=== PATIENT | female | born 1980 | race Caucasian/White ===

== ENCOUNTER 2017-11-17 08:00 | Outpatient (CLI) | payer OTHER | END 2017-11-17 08:01 | disposition home or self-care (01) | LOC: LAB.R 08:00 | PROVIDERS: ATTEND Obstetrics & Gynecology | DX: Z11.3 Encounter for screening for infections with a predominantly sexual mode of transmission (principal) | CPT/HCPCS: 87491; 87591 ==

== ENCOUNTER 2018-05-31 15:51 | Outpatient (CLI) | payer OTHER ==
--- NOTE | 2018-05-31 23:01 | XRAY Report ---
Reason: LUMBAR PAIN DDD Procedure Date: 05/31/2018 Accession Number: [id number] / [id number] Procedure: XR - Lumbar Spine 2 View CPT Code: FULL RESULT: EXAM: LUMBOSACRAL SPINE RADIOGRAPHY EXAM DATE: 05/31/2018 04:31 PM. CLINICAL HISTORY: Back pain COMPARISONS: None. TECHNIQUE: 2 views. FINDINGS: Alignment: No evidence of dislocation. There is mild right convex scoliosis. Bones: No fractures or focal bony lesions. Disks/Facets: No evidence of significant degenerative disease. Sacroiliac Joints: Unremarkable. Soft Tissues: No unexpected findings. IMPRESSION: No evidence of fracture or dislocation. No significant disk space narrowing or facet arthrosis. RADIA
--- NOTE | 2018-05-31 23:02 | XRAY Report ---
Reason: THORACIC BACK PAIN,CERVICALGIA,DDD,LUMBAR SPINE Procedure Date: 05/31/2018 Accession Number: [id number] / [id number] Procedure: XR - Thoracic Spine 2 View CPT Code: FULL RESULT: EXAM: THORACIC SPINE RADIOGRAPHY EXAM DATE: 05/31/2018 04:31 PM. CLINICAL HISTORY: Back pain COMPARISON: None. TECHNIQUE: 2 views. FINDINGS: Alignment: No spondylolisthesis. There is very mild S-shaped scoliotic curvature of the upper and mid thoracic spine. Bones: No fractures or bone lesions. Disks: Normal. Disk heights are maintained. Soft Tissues: Normal. The visualized lungs and cardiomediastinal silhouette are normal. IMPRESSION: No evidence of fracture, dislocation, or significant degenerative disease. RADIA
--- NOTE | 2018-05-31 23:03 | XRAY Report ---
Reason: CERVICALIGIA Procedure Date: 05/31/2018 Accession Number: [id number] / [id number] Procedure: XR - Cervical Spine 2 View CPT Code: FULL RESULT: EXAM: CERVICAL SPINE RADIOGRAPHY EXAM DATE: 05/31/2018 04:31 PM. CLINICAL HISTORY: CERVICALGIA. COMPARISONS: None. TECHNIQUE: 3 views. FINDINGS: Alignment: Normal. No spondylolisthesis or scoliosis. Bones: The cervical vertebral bodies and posterior elements are well visualized from the skull base through C7-T1. No fractures or bone lesions. Disks: There is mild disk space narrowing at the C4-C5 and C5-C6 levels. Facets: No evidence of significant facet arthrosis. Soft Tissues: Normal. No prevertebral soft tissue swelling. The visualized lung apices are clear. IMPRESSION: 1. No fracture or dislocation. 2. There is mild disk space narrowing and marginal osteophyte formation of the mid cervical spine. RADIA
== END 2018-05-31 15:52 | disposition home or self-care (01) ==
LOC: DI 15:51
PROVIDERS: ATTEND Physician Assistant Medical
DX: M51.36 Other intervertebral disc degeneration, lumbar region (principal); M54.6 Pain in thoracic spine; M54.2 Cervicalgia; M25.78 Osteophyte, vertebrae
CPT/HCPCS: 72040; 72070; 72100

== ENCOUNTER 2019-03-14 17:51 | Emergency (ER) | payer OTHER ==
--- NOTE | 2019-03-14 18:02 | ED Physician Documentation ---
PD HPI FEMALE - Stated complaint Stated Complaint: FEMALE - Chief complaint Chief Complaint: UTI - History obtained from History obtained from: Patient - History of Present Illness Timing - onset: Today Timing - duration: Days (1) Timing - details: Abrupt onset, Still present Associated symptoms: Back pain (mild), Dysuria, Urinary frequency. No: Fever, Vaginal discharge, Genital sore/lesion, Hematuria Contributing factors: No: Exposed to STD Similar symptoms before: Diagnosis (uti) Recently seen: Clinic (lower back disc injection few days ago without problems.) Review of Systems Constitutional: denies: Fever, Chills, Myalgias GI: denies: Nausea, Vomiting : reports: Dysuria, Frequency. denies: Discharge PD PAST MEDICAL HISTORY - Past Medical History Musculoskeletal: Chronic back pain - Present Medications Home Medications: Ambulatory Orders Medication Instructions Recorded Confirmed Sulfamethox/Trimeth 800/160 1 each PO BID #14 tablet 03/14/19 [Bactrim Ds 800/160] - Allergies Allergies/Adverse Reactions: Allergies Allergy/AdvReac Type Severity Reaction Status Date / Time azithromycin AdvReac Nausea Verified 03/14/19 17:57 PD ED PE NORMAL - Vitals Vital signs reviewed: Yes - General General: Alert and oriented X 3, No acute distress, Well developed/nourished - Abdomen Abdomen: Soft, Non tender - Female Female : Deferred - Back Back: No CVA TTP - Derm Derm: Normal color, Warm and dry Results - Vitals Vitals: Vital Signs - 24 hr 03/14/19 17:55 Temperature 36.2 C L Heart Rate 93 Respiratory 20 Rate Blood Pressure 104/68 O2 Saturation 99 Oxygen O2 Source Room air PD MEDICAL DECISION MAKING - ED course Complexity details: considered differential (Sounds like UTI and we will treated as such.), d/w patient Departure - Departure Disposition: Home, Self Care Clinical Impression: Urinary tract infection Qualifiers: Urinary tract infection type: acute cystitis Hematuria presence: without hemat uria Qualified Code(s): N30.00 - Acute cystitis without hematuria Condition: Stable Record reviewed to determine appropriate education?: Yes Instructions: ED UTI Cystitis Female Follow-Up: Darryl Estrada MD [Primary Care Provider] - Prescriptions: Sulfamethox/Trimeth 800/160 [Bactrim Ds 800/160] 1 each PO BID #14 tablet Comments: Stay well-hydrated. Bactrim antibiotic twice daily for a week. Continue the ibuprofen and Azo as needed for discomfort. Recheck if not improving over the next couple of days.
[2019-03-14] MEDS ORDERED: SULFAMETH/TRIMETH DS 800/160 MG TABLET PO STA (18:16)
[2019-03-14 18:28] VITALS: BP 118/68
[2019-03-14 18:38] LABS: KETONES,URINE (UA) TRACE mg/dL (NEGATIVE); LEUKOCYTE ESTERASE, URINE LARGE (NEGATIVE); NITRITE,URINE POSITIVE (NEGATIVE); OCCULT BLOOD,URINE MODERATE (NEGATIVE); PROTEIN,URINE >=300 mg/dL (NEGATIVE)
[2019-03-14 18:50] LABS: BILIRUBIN,URINE COLOR INTERFERENCE (NEGATIVE); CLARITY,URINE HAZY (CLEAR)
[2019-03-14 18:51] LABS: RBC,URINE 0-5 /HPF (0-5); WBC CLUMPS,URINE PRESENT
[2019-03-14 18:52] LABS: BACTERIA,URINE Moderate /HPF (None Seen); SQUAMOUS EPITHELIAL CELL,UR FEW Squamous (<= Few)
== END 2019-03-14 18:27 | disposition home or self-care (01) ==
LOC: ED 17:51
DX: N30.00 Acute cystitis without hematuria (principal)
CPT/HCPCS: 81001; 87086; 87181; 99283; A9270; 81003; 81025

== ENCOUNTER 2019-08-24 19:16 | Outpatient (CLI) | payer OTHER ==
--- NOTE | 2019-08-25 05:51 | Ultrasound Report ---
Reason: SCOTOMA INVOLVING CENTRAL AREA,LEFT EYE Procedure Date: 08/24/2019 Accession Number: [id number] / [id number] Procedure: US - Carotid Doppler Complete CPT Code: Final Report FULL RESULT: EXAM: BILATERAL CAROTID AND VERTEBRAL ARTERY DUPLEX DOPPLER ULTRASOUND: EXAM DATE: 08/24/2019 08:40 PM CLINICAL HISTORY: Scotoma involving central area, left eye. COMPARISON: None. TECHNIQUE: Grayscale imaging, color Doppler, and duplex spectral Doppler were used to evaluate the carotid and vertebral arteries bilaterally. Static images were obtained. FINDINGS: Minimal amount of irregular carotid artery plaquing bilaterally. Normal antegrade flow is present in bilateral vertebral arteries. VELOCITIES (cm/sec): Right CCA mid: PSV 98 cm/sec CCA dist: PSV 91 cm/sec ICA prox: PSV 117 cm/sec, EDV 44 cm/sec ICA mid: PSV 114 cm/sec, EDV 44 cm/sec ICA dist: PSV 127 cm/sec, EDV 53 cm/sec ECA: PSV 86 cm/sec Vert: PSV 96 cm/sec ICA/CCA: 1.3 Left CCA mid: PSV 120 cm/sec CCA dist: PSV 110 cm/sec ICA prox: PSV 127 cm/sec, EDV 39 cm/sec ICA mid: PSV 144 cm/sec, EDV 63 cm/sec ICA dist: PSV 120 cm/sec, EDV 50 cm/sec ECA: PSV 89 cm/sec Vert: PSV 58 cm/sec ICA/CCA: 1.2 ICA diameter stenosis: Right: <50% by velocity and <70% by NASCET criteria. Left: <50% by velocity and <70% by NASCET criteria. Other: Right submandibular lymph nodes measuring up to 8 mm in short axis. IMPRESSION: 1. Minimal bilateral carotid artery plaquing. 2. No hemodynamically significant stenosis or occlusion of carotid arteries. 3. Normal antegrade flow is present in bilateral vertebral arteries. 4. Several right submandibular lymph nodes measuring up to 8 mm in short axis, nonspecific. General Recommendations: Stenosis =50% ICA - Follow-up ultrasound 6-12 months Stenosis <50% ICA - High Risk Patient with plaque - Follow-up ultrasound 1-2 years Normal Study but High Risk Patient - Follow-up ultrasound 3-5 years Management recommendations and diagnostic criteria are based on current IAC endorsed standards in Carotid Artery Stenosis: Grayscale and Doppler Ultrasound Diagnosis. Validated velocity measurements with angiographic measurements and velocity criteria are extrapolated from diameter data as defined by the Society of Radiologists in Ultrasound Consensus Conference Radiology 2003; 229;340-346. RADIA
== END 2019-08-24 19:17 | disposition home or self-care (01) ==
LOC: DI 19:16
PROVIDERS: ATTEND Optometrist Corneal and Contact Management
DX: H53.412 Scotoma involving central area, left eye (principal)
CPT/HCPCS: 93880

== ENCOUNTER 2019-08-25 09:14 | Outpatient (CLI) | payer OTHER ==
[2019-08-25] MEDS ORDERED: GADOBUTROL 7.5 MMOL/7.5 ML VIAL ONE (10:21)
[2019-08-25] MEDS ORDERED: GADOBUTROL 7.5 MMOL/7.5 ML VIAL IVP ONE (10:40)
--- NOTE | 2019-08-26 01:46 | MRI Report ---
Reason: LT EYE SCOTOMA Procedure Date: 08/25/2019 Accession Number: [id number] / [id number] Procedure: MRI - Orbits W/WO CPT Code: Final Report FULL RESULT: EXAM: MRI BRAIN AND ORBITS WITHOUT AND WITH CONTRAST EXAM DATE: 08/25/2019 11:05 AM. CLINICAL HISTORY: Headache, visual disturbances. COMPARISON: ORBITS W/WO 08/25/2019 10:20 AM. TECHNIQUE: Multiplanar, multisequence T1-weighted and fluid-sensitive MR sequences of the brain were performed before and after administration of intravenous contrast. Sequences optimized for routine and orbital evaluation. Other: Additional high-resolution images through the orbits were obtained. IV Contrast: 7 mL of Gadavist. FINDINGS: Brain Volume: Normal for age. Parenchyma: No acute hemorrhage, mass, or infarct. No white matter lesions identified. No abnormal enhancement. Ventricles/Cisterns: No hydrocephalus. No abnormal extra-axial fluid collection or hemorrhage. Orbits: The orbits are symmetric in size. There is no evidence of lens dislocation, intraocular hemorrhage, or an intraocular mass lesion. On coronal T2 images through the optic nerves, there appears to be overall decreased fluid within the left optic nerve sheath compared to the right which could represent a normal variant for this patient. There is no abnormal enhancement of the optic nerves or optic nerve sheaths. Appropriate and symmetric enhancement of the bilateral extraocular muscles is noted. The superior ophthalmic veins are not enlarged. Sella Turcica: The pituitary gland, cavernous sinuses, suprasellar cistern and optic chiasm are unremarkable. IAC: Symmetric and unremarkable. Vasculature: Normal signal flow void is seen in the major arterial structures at the skull base. The dural sinuses are patent and enhance normally. Sinuses: A tiny mucous retention cyst is noted in the inferior left maxillary sinus. The mastoid sinuses are not opacified. Bones: No focal pathologic appearing marrow signal changes. IMPRESSION: 1. Normal contrast-enhanced brain MRI. 2. Decreased fluid in the left optic nerve sheath compared to the right. However, there is no abnormal signal intensity within the optic chiasm. No abnormal optic nerve or optic nerve sheath enhancement is seen. These findings could represent a normal variant for this patient. 3. The remainder of the orbits are normal in appearance. RADIA
== END 2019-08-25 09:15 | disposition home or self-care (01) ==
LOC: DI 09:14
PROVIDERS: ATTEND Optometrist Corneal and Contact Management
DX: H53.412 Scotoma involving central area, left eye (principal)
CPT/HCPCS: 70543; 70553; A9585

== ENCOUNTER 2020-05-03 00:37 | Emergency (ER) | payer BC, OTHER ==
[2020-05-03 00:50] VITALS: BP 117/79
--- NOTE | 2020-05-03 01:14 | ED Physician Documentation ---
PD HPI LOWER EXT INJURY - Stated complaint Stated Complaint: R FOOT PX - Chief complaint Chief Complaint: Ext Problem - History obtained from History obtained from: Patient, Family - History of Present Illness PD HPI LOW EXT INJURY LOCATION: Right, Foot Type of injury: Twist Where injury occurred: Home Timing - onset: Today Timing - duration: Minutes Timing - details: Abrupt onset, Still present Improved by: Rest, Immobilization Worsened by: Moving, Palpating Associated symptoms: Swelling. No: Weakness, Numbness, Tingling, Discolored Similar symptoms before: Diagnosis (proximal 5th fx) Recently seen: Not recently seen - Additional information Additional information: Previously well 39-year-old female stepped down off of a 10 inch high ledge onto a croquet ball and twisted her foot. She heard a snap and had immediate swelling to the dorsum of the foot laterally. She has a lot of pain to the plantar surface and dorsal surface of the foot laterally. 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 : Chronic bladder infection HEENT: None Psych: None Musculoskeletal: Chronic back pain Derm: None - Past Surgical History Past Surgical History: No - Present Medications Home Medications: Ambulatory Orders Medication Instructions Recorded Confirmed Sulfamethox/Trimeth 800/160 1 each PO BID #14 tablet 03/14/19 [Bactrim Ds 800/160] - Allergies Allergies/Adverse Reactions: Allergies Allergy/AdvReac Type Severity Reaction Status Date / Time azithromycin AdvReac Nausea Verified 05/03/20 00:50 - Social History Does the pt smoke?: No Smoking Status: Never smoker Does the pt drink ETOH?: No Does the pt have substance abuse?: No - Immunizations Immunizations are current?: Yes - POLST Patient has POLST: No PD ED PE NORMAL - Vitals Vital signs reviewed: Yes (tachy ) - General General: Alert and oriented X 3, No acute distress, Well developed/nourished - HEENT HEENT: Atraumatic, PERRL, EOMI - Respiratory Respiratory: No respiratory distress - Derm Derm: Normal color, Warm and dry, No rash - Extremities Extremities: No deformity, Other (There is tenderness to the proximal 5th without crepitance. There is tenderness to the dorsum of the foot from the proximal 5th to the cuboid. She is able to flex and extend. Distal n/v intact. malleoli are non-tender. ) - Neuro Neuro: Alert and oriented X 3, supervisor finishing 2-12 intact, No motor deficit, No sensory deficit, Normal speech Eye Opening: Spontaneous Motor: Obeys Commands Verbal: Oriented GCS Score: 15 - Psych Psych: Normal mood, Normal affect Results - Vitals Vitals: Vital Signs - 24 hr 05/03/20 05/03/20 00:48 01:58 Temperature 36.8 C Heart Rate 112 H Respiratory 18 17 Rate Blood Pressure 117/79 O2 Saturation 100 Oxygen O2 Source Room air - Rads (name of study) foot Radiology: Prelim report reviewed (Impression: 1. No acute findings.), EMP read indepedently (On my read there appears to be a tiny chip fracture from the cuboid.), See rad report PD MEDICAL DECISION MAKING - ED course Complexity details: reviewed results, re-evaluated patient, considered differential, d/w patient ED course: 39-year-old female who stepped on a croquet ball appears to have a tiny chip fracture from the cuboid and she is placed into a walking boot. She is given four hydrocodone for use tonight as needed. Departure - Departure Disposition: 01 Home, Self Care Clinical Impression: Fracture of cuboid of right foot Qualifiers: Encounter type: initial encounter Fracture type: closed Fracture alignment: displaced Qualified Code(s): S92.211A - Displaced fracture of cuboid bone of right foot, initial encounter for closed fracture Condition: Stable Instructions: ED Fx Foot Follow-Up: Darryl Estrada MD [Primary Care Provider] - Comments: There is a tiny chip fracture from the cuboid bone of your foot. This may give you a bit of pain for several days or weeks. Wear the walking boot for comfort.
[2020-05-03] MEDS ORDERED: HYDROcod/ACET 5/325 Prepack 4 PO STA (02:06)
--- NOTE | 2020-05-03 07:52 | XRAY Report ---
PROCEDURE: Foot 3 View RT INDICATIONS: twisted foot TECHNIQUE: 3 views of the foot were acquired. COMPARISON: None FINDINGS: Bones: No fractures or dislocations. No suspicious bony lesions. Soft tissues: No tibiotalar joint effusion. Achilles tendon appears normal. IMPRESSION: No trauma found. Reviewed by: Pedro Shen MD on 05/03/2020 7:51 AM PDT Approved by: Pedro Shen MD on 05/03/2020 7:51 AM PDT Station ID: [id number]
== END 2020-05-03 02:49 | disposition home or self-care (01) ==
LOC: ED 00:37
DX: S92.211A Displaced fracture of cuboid bone of right foot, initial encounter for closed fracture (principal); X50.1XXA Overexertion from prolonged static or awkward postures, initial encounter; Y93.89 Activity, other specified; Y92.009 Unspecified place in unspecified non-institutional (private) residence as the place of occurrence of the external cause
CPT/HCPCS: 99282; 99283

== ENCOUNTER 2021-08-20 16:15 | Outpatient (CLI) | payer BC ==
[2021-08-20 17:06] LABS: ALBUMIN 4.9 g/dL (3.2-5.5); ALKALINE PHOSPHATASE 51 IU/L (42-121); ALT ALANINE AMINOTRANSFERASE 17 IU/L (10-60); AST ASPARTATE AMINOTRANSFERASE 19 IU/L (10-42); BILIRUBIN,TOTAL 0.6 mg/dL (0.2-1.0); BUN - BLOOD UREA NITROGEN 8 mg/dL (6-20); CALCIUM 9.3 mg/dL (8.5-10.3); CARBON DIOXIDE - CO2 25 mmol/L (21-32); CHLORIDE 100 mmol/L (101-111); CHOL/HDL RATIO 3.9 (<4.4); CHOLESTEROL 204 mg/dL; CREATININE 0.6 mg/dL (0.4-1.0); GFR - MDRD 111 (>89); GLUCOSE 98 mg/dL (70-100); HDL CHOLESTEROL 52 mg/dL; LDL CHOLESTEROL,CALCULATED 137 mg/dL; LDL/HDL RATIO 2.6 (<4.4); POTASSIUM 3.7 mmol/L (3.5-5.0); SODIUM 133 mmol/L (135-145); TOTAL PROTEIN 7.4 g/dL (6.7-8.2); TRIGLYCERIDES 73 mg/dL; VLDL CHOLESTEROL 15 mg/dL
== END 2021-08-20 16:16 | disposition home or self-care (01) ==
LOC: LAB 16:15
PROVIDERS: ATTEND Physician Assistant
DX: Z79.899 Other long term (current) drug therapy (principal); Z79.1 Long term (current) use of non-steroidal anti-inflammatories (NSAID); Z13.6 Encounter for screening for cardiovascular disorders
CPT/HCPCS: 36415; 80053; 80061; 83721

== ENCOUNTER 2021-08-27 17:57 | Emergency (ER) | payer OTHER, BC ==
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
[2021-08-27 18:15] VITALS: BP 118/67
== END 2021-08-27 18:55 | disposition home or self-care (01) ==
LOC: ED 17:57
DX: S20.212A Contusion of left front wall of thorax, initial encounter (principal); V89.2XXA Person injured in unspecified motor-vehicle accident, traffic, initial encounter; Y93.89 Activity, other specified; Y92.410 Unspecified street and highway as the place of occurrence of the external cause
CPT/HCPCS: 99282

== ENCOUNTER 2022-02-09 08:51 | Outpatient (CLI) | payer BC ==
[2022-02-09 09:32] LABS: CALCIUM 9.3 mg/dL (8.5-10.3); CREATININE 0.8 mg/dL (0.4-1.0); POTASSIUM 3.8 mmol/L (3.5-5.0)
== END 2022-02-09 08:52 | disposition home or self-care (01) ==
LOC: LAB 08:51
PROVIDERS: ATTEND Orthopaedic Surgery Orthopaedic Surgery of the Spine
DX: Z01.812 Encounter for preprocedural laboratory examination (principal)
CPT/HCPCS: 36415; 80048

== ENCOUNTER 2022-02-21 09:14 | Emergency (ER) | payer BC ==
--- OUTSIDE RECORDS SUMMARY | 2022-02-21 10:54 | EXTERNAL MEDICAL SUMMARY RPT | Continuity of Care Document ---
:1980 Author Organization [facility] Address [address] [place] [phone] Phone Allergies No information. Encounters No information. Functional Status No information. Immunizations No information. Medications No information. Problems No information. Procedures No information. Results/Labs test date author facility value unit interpret ation Result panel 1 (unknown) (no (unknown) (unknown) (no value) (units (unk nown) date) unknown) (unknown) (no (unknown) (unknown) [address] [place] [address] (units (unknown) date) unknown) (unknown) (no (unknown) (unknown) [place], [place] (units ( unknown) date) [id number] unknown) (unknown) (no (unknown) (unknown) [facility] (units (unknown) date) unknown) (unknown) (no (unknown) (unknown) Magnetic (units (unkno wn) date) Resonance Report unknown) (unknown) (no (unknown) (unknown) Signed (units (unkno wn) date) unknown) (unknown) (no (unknown) (unknown) (no value) (units (unk nown) date) unknown) (unknown) (no (unknown) (unknown) No neural (units (unkn own) date) compression unknown) (unknown) (no (unknown) (unknown) 11/26/21 (units (unkno wn) date) unknown) (unknown) (no (unknown) (unknown) 1. Multilevel (units ( unknown) date) degenerative disc unknown) disease. (unknown) (no (unknown) (unknown) 1. Normal (units (unkn own) date) examination. unknown) (unknown) (no (unknown) (unknown) 2. Moderate (units (un known) date) right C5-C6 unknown) uncovertebral arthropathy. (unknown) (no (unknown) (unknown) 2. No central (units ( unknown) date) stenosis. unknown) (unknown) (no (unknown) (unknown) 3. No neural (units (u nknown) date) foraminal unknown) narrowing. (unknown) (no (unknown) (unknown) 3. No severe (units (u nknown) date) central stenosis. unknown) (unknown) (no (unknown) (unknown) 4. No neural (units (u nknown) date) compression. unknown) (unknown) (no (unknown) (unknown) 4. Severe right (units (unknown) date) C5-C6 neural unknown) foraminal narrowing with compression of the (unknown) (no (unknown) (unknown) Alignment and (units ( unknown) date) Curvature: There unknown) is normal bony alignment. (unknown) (no (unknown) (unknown) Approved by: (units (u nknown) date) Indira Marquez unknown) MD Tracie, PhD on 11/27/2021 at 8:33 (unknown) (no (unknown) (unknown) Approved by: (units (u nknown) date) Indira Marquez unknown) MD Tracie, PhD on 11/27/2021 at 8:38 (unknown) (no (unknown) (unknown) Bone Marrow: (units (u nknown) date) Marrow is of unknown) normal overall signal. No acute vertebral body (unknown) (no (unknown) (unknown) Bone Marrow: (units (u nknown) date) Modic type 1 unknown) reactive endplate changes noted adjacent to the C5- (unknown) (no (unknown) (unknown) C2-C3: Normal (units (unknown) date) appearance. unknown) (unknown) (no (unknown) (unknown) C3-C4: Loss of (units (unknown) date) disc signal. unknown) Minimal, diffuse disc bulge. No central (unknown) (no (unknown) (unknown) C4-C5: Loss of (units (unknown) date) disc signal and unknown) slight loss of disc height. Mild, diffuse disc (unknown) (no (unknown) (unknown) C5-C6: Loss of (units (unknown) date) disc signal and unknown) height. Moderate, diffuse disc bulge. (unknown) (no (unknown) (unknown) C6-C7: Slight (units (unknown) date) loss of disc unknown) signal. No central stenosis. No neural foraminal (unknown) (no (unknown) (unknown) C7-T1: Slight (units (unknown) date) loss of disc unknown) signal. No central stenosis. No neural foraminal (unknown) (no (unknown) (unknown) COMPARISON: (units (un known) date) None. unknown) (unknown) (no (unknown) (unknown) Dictated by: (units (u nknown) date) Indira Marquez unknown) MD Tracie, PhD on 11/27/2021 at 8:32 (unknown) (no (unknown) (unknown) Dictated by: (units (u nknown) date) Indira Marquez unknown) MD Tracie, PhD on 11/27/2021 at 8:34 (unknown) (no (unknown) (unknown) FINDINGS: (units (unkn own) date) unknown) (unknown) (no (unknown) (unknown) IMPRESSION: (units (un known) date) unknown) (unknown) (no (unknown) (unknown) INDICATIONS: (units (u nknown) date) radiculopathy unknown) cervical region (unknown) (no (unknown) (unknown) INDICATIONS: (units (u nknown) date) radiculopathy unknown) thoracic region (unknown) (no (unknown) (unknown) Image quality: (units (unknown) date) Excellent. unknown) (unknown) (no (unknown) (unknown) Mild narrowing (units (unknown) date) of the central unknown) canal. Mild right and [id number]-rm-ijeiivim left (unknown) (no (unknown) (unknown) Miscellaneous: (units (unknown) date) On axial images, unknown) central canal and foramina appear widely (unknown) (no (unknown) (unknown) Noncontrast (units (un known) date) sagittal T1 spin unknown) echo and T2 fast spin echo, sagittal STIR, (unknown) (no (unknown) (unknown) Noncontrast (units (un known) date) sagittal T1 spine unknown) echo and T2 fast spin echo, sagittal STIR, axial (unknown) (no (unknown) (unknown) Paraspinous Soft (units (unknown) date) Tissues: No unknown) paravertebral masses. (unknown) (no (unknown) (unknown) Paraspinous Soft (units (unknown) date) Tissues: No unknown) paravertebral masses. Prevertebral soft tissues (unknown) (no (unknown) (unknown) Spinal Cord: (units (u nknown) date) Visualized spinal unknown) cord has normal size and signal. No cerebellar (unknown) (no (unknown) (unknown) Spinal Cord: (units (u nknown) date) Visualized spinal unknown) cord is normal in size and signal. (unknown) (no (unknown) (unknown) TECHNIQUE: (units (unk nown) date) unknown) (unknown) (no (unknown) (unknown) cervical spine. (units (unknown) date) unknown) (unknown) (no (unknown) (unknown) exiting right C6 (units (unknown) date) nerve root. unknown) (unknown) (no (unknown) (unknown) fast spin echo (units (unknown) date) through the unknown) thoracic spine. (unknown) (no (unknown) (unknown) foraminal (units (unkn own) date) narrowing. No unknown) neural compression. (unknown) (no (unknown) (unknown) fractures. (units (unk nown) date) unknown) (unknown) (no (unknown) (unknown) herniation. (units (un known) date) unknown) (unknown) (no (unknown) (unknown) in thickness. (units ( unknown) date) unknown) (unknown) (no (unknown) (unknown) left neural (units (un known) date) foraminal unknown) narrowing. No neural compression. (unknown) (no (unknown) (unknown) narrowing of the (units (unknown) date) central canal. unknown) Moderate right uncovertebral joint (unknown) (no (unknown) (unknown) nerve root. (units (un known) date) unknown) (unknown) (no (unknown) (unknown) right and (units (unkn own) date) [id number] unknown) left neural foraminal narrowing with compression of (unknown) (no (unknown) (unknown) sagittal T2 fast (units (unknown) date) spin echo, and unknown) axial gradient echo or T2 fast spin echo (unknown) (no (unknown) (unknown) scanned levels. (units (unknown) date) unknown) (unknown) (no (unknown) (unknown) [id number] (units (unkno wn) date) unknown) (unknown) (no (unknown) (unknown) Accession (units (unkn own) date) Number: unknown) [id number] (unknown) (no (unknown) (unknown) Accession (units (unkn own) date) Number: unknown) [id number] (unknown) (no (unknown) (unknown) Age/Sex: 40 / F (units (unknown) date) Date of unknown) Service: (unknown) (no (unknown) (unknown) C6 disc. (units (unkno wn) date) unknown) (unknown) (no (unknown) (unknown) : 1980 (units (unknown) date) Acct:[id number] unknown) (unknown) (no (unknown) (unknown) Loc: MRI (units (unkno wn) date) unknown) (unknown) (no (unknown) (unknown) Moderate (units (unkno wn) date) unknown) (unknown) (no (unknown) (unknown) Ordering (units (unkno wn) date) Provider: unknown) Ramesh Gallego MD (unknown) (no (unknown) (unknown) PROCEDURE: MR (units (unknown) date) CERVICAL SPINE WO unknown) CON (unknown) (no (unknown) (unknown) PROCEDURE: MR (units (unknown) date) THORACIC SPINE WO unknown) CON (unknown) (no (unknown) (unknown) Patient: (units (unkno wn) date) Arabella Salinas Radha unknown) MR#: [id number] (unknown) (no (unknown) (unknown) Procedure: MR (units ( unknown) date) cervical spine wo unknown) con (unknown) (no (unknown) (unknown) Procedure: MR (units ( unknown) date) thoracic spine wo unknown) con (unknown) (no (unknown) (unknown) T1 and T2 (units (unkn own) date) unknown) (unknown) (no (unknown) (unknown) are normal (units (unk nown) date) unknown) (unknown) (no (unknown) (unknown) bulge. (units (unkno wn) date) unknown) (unknown) (no (unknown) (unknown) compression (units (un known) date) unknown) (unknown) (no (unknown) (unknown) exiting right C6 (units (unknown) date) unknown) (unknown) (no (unknown) (unknown) foraminal (units (unkn own) date) oblique unknown) (unknown) (no (unknown) (unknown) hypertrophy. (units (u nknown) date) Severe unknown) (unknown) (no (unknown) (unknown) narrowing. (units (unk nown) date) unknown) (unknown) (no (unknown) (unknown) neural (units (unkno wn) date) unknown) (unknown) (no (unknown) (unknown) patent at all (units ( unknown) date) unknown) (unknown) (no (unknown) (unknown) stenosis. Mild (units (unknown) date) unknown) (unknown) (no (unknown) (unknown) the (units (unkno wn) date) unknown) (unknown) (no (unknown) (unknown) through the (units (un known) date) unknown) (unknown) (no (unknown) (unknown) tonsillar (units (unkn own) date) unknown) Social History No information. Vital Signs No information.
--- NOTE | 2022-02-21 13:36 | ED Physician Documentation ---
History of Present Illness - Stated complaint Stated Complaint: IVY FM POST SURG - Chief complaint Chief Complaint: Wound - Additonal information Additional information: 41-year-old female presents to the emergency department for evaluation of pain and drainage at her postoperative site. She is status post anterior C4-C5 C5-C6 discectomy and fusion of her cervical vertebrae through [facility] in [facility] 72 hours ago. She had begun to have increased pain radiating to both her arms. Then this morning she had a a lot of drainage from the incision which she had not had previously. She denies any fevers. 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 : Chronic bladder infection HEENT: None Psych: None Musculoskeletal: Chronic back pain Derm: None - Past Surgical History Past Surgical History: No /SHIPPING INSPECTOR: Oophrectomy - Present Medications Home Medications: Ambulatory Orders Medication Instructions Recorded Confirmed Cyclobenzaprine [Flexeril] 10 mg PO TID PRN #20 tablet 08/27/21 Dextroamphetamine/Amphetamine 10 mg PO 08/27/21 [Adderall 10 mg Tablet] - Allergies Allergies/Adverse Reactions: Allergies Allergy/AdvReac Type Severity Reaction Status Date / Time azithromycin AdvReac Nausea Verified 02/21/22 09:56 - Social History Does the pt smoke?: No Smoking Status: Never smoker Does the pt drink ETOH?: No Does the pt have substance abuse?: No - Immunizations Immunizations are current?: Yes - POLST Patient has POLST: No PD ED PE NORMAL - General General: Alert and oriented X 3, No acute distress, Well developed/nourished - HEENT HEENT: Moist mucous membranes, Pharynx benign - Neck Neck: Supple, no meningeal sign, Other (5 cm incision of the left anterior neck well approximated with suture and Steri-Strips in place. The bandage has moderate amount of serous drainage. The incision itself is tender but not more than you would expect. No swelling or erythema.). No: No bony TTP (Normal lateral rotation of the neck. Reduced forward flexion and posterior extension) - Cardiac Cardiac: RRR, No murmur - Respiratory Respiratory: No respiratory distress - Abdomen Abdomen: Normal bowel sounds, Soft - Extremities Extremities: No deformity, No tenderness to palpate, Normal ROM s pain, Other (Motor strength is 5 of 5 bilateral upper extremities at the shoulder deltoid triceps elbows wrist and hand. No paresthesias.) - Neuro Neuro: Alert and oriented X 3 Eye Opening: Spontaneous Motor: Obeys Commands Verbal: Oriented GCS Score: 15 - Psych Psych: Normal mood Results - Vitals Vitals: Vital Signs - 24 hr 02/21/22 02/21/22 09:51 11:56 Temperature 36.2 C L 36.8 C Heart Rate 62 77 Respiratory 16 16 Rate Blood Pressure 111/76 120/84 H O2 Saturation 99 98 Oxygen O2 Source Room air - Rads (name of study) CT cervical Radiology: Final report received (Postsurgical changes of anterior fusion C4-6 without evidence of hardware complication. Prevertebral fluid as well as fluid extending along the left lobe of the thyroid with deep and superficial emphysema. These findings may be within normal limits given recent surgery) PD MEDICAL DECISION MAKING - ED course Complexity details: re-evaluated patient, considered differential, d/w patient, d/w family, d/w case consultant (Dr. Trivedi) ED course: 41-year-old female presents to the emergency department for evaluation of serous drainage from her anterior neck cervical fusion site. This operation was now 72 hours ago. This a.m. she had increased pain in the neck extending to both arms but then it began to drain serous fluid thus she comes to the ER. She has not had any fevers. The exam of the incision reveals no surrounding erythema redness. I was unable to express any fluid. The incision is well approximated and intact. The dressing was changed and after reevaluation here in the ER there is no further drainage. A CT of the cervical spine showed intact hardware. There is some fluid and emphysema within the neck which would be expected postsurgically. I did discuss this case with [facility] orthopedic surgeon on-call Dr. Rodriguez and she is in agreement that the patient is stable for discharge home continue to follow-up with [facility] surgery as already scheduled. Otherwise emergent return precautions discussed Departure - Departure Disposition: Home, Self Care Clinical Impression: Visit for wound check Condition: Stable Record reviewed to determine appropriate education?: Yes Comments: Arabella you are seen today in the emergency department for drainage from the surgical site after your recent surgery. The CT of your neck did not show any problems with the hardware. There was a small amount of fluid surrounding the thyroid and within the tissues but this is expected postoperatively. I did discuss this case with Dr. Rodriguez on-call with [facility]. You can continue to recover at home as you otherwise would. Continue to follow-up with [facility]. If you develop fevers, cannot swallow normally, have any milky drainage from your incisions call the surgical office immediately or return to the ER
--- NOTE | 2022-02-21 14:27 | CT Report ---
PROCEDURE: CERVICAL SPINE WO INDICATIONS: Fusion 72 hours ago, drainage from surgical site TECHNIQUE: Noncontrast 3 mm thick sections acquired from the skull base to the T4 level. Sagittal and coronal r eformats were then constructed. For radiation dose reduction, the following was used: automated exp osure control, adjustment of mA and/or kV according to patient size. COMPARISON: None. FINDINGS: Image quality: Excellent. Bones: Patient is status post anterior fusion of C4-C6. Hardware appears appropriately positioned and intact. Degenerative changes are noted at these levels with very mild neural foraminal stenosis. No definite intraspinal hematoma noted within the limits of this exam. No acute osseous abnormality. Ali gnment is normal. Soft tissues: Postsurgical changes of anterior fusion of the cervical spine with deep and superficial soft tissue emphysema which is likely within normal limits given recent surgery. There is fluid note d within the prevertebral soft tissues extending from the level of C2 through the surgical site. Gerson tional fluid is noted extending around the left lobe of the thyroid. No apical pneumothoraces. IMPRESSION: Limited examination given the lack of intravenous contrast. Examination is performed noncontrast give n significant shortage of intravenous contrast. Postsurgical changes of anterior fusion of C4-C6 without evidence of hardware complication. Preverteb ral fluid as well as fluid extending along the left lobe of the thyroid with deep and superficial emp hysema. These findings may be within normal limits given recent surgery. The sterility of this fluid is unable to be assessed by imaging. Recommend clinical correlation. Reviewed by: Chad Prather DO on 02/21/2022 1:26 PM [facility] Approved by: Chad Prather DO on 02/21/2022 1:26 PM [facility] Station ID: [id number]
[2022-02-21 15:03] VITALS: BP 118/75
== END 2022-02-21 15:04 | disposition home or self-care (01) ==
LOC: ED 09:14
DX: G89.18 Other acute postprocedural pain (principal)
CPT/HCPCS: 99282; 99284

== ENCOUNTER 2022-08-08 12:08 | Emergency (ER) | payer BC, OTHER ==
[2022-08-08 12:38] VITALS: BP 128/92
--- NOTE | 2022-08-08 13:27 | XRAY Report ---
PROCEDURE: Chest 1 View X-Ray INDICATIONS: cough TECHNIQUE: One view of the chest was acquired. COMPARISON: None. FINDINGS: Surgical changes and devices: None. Lungs and pleura: No pleural effusions or pneumothorax. Lungs are clear. Mediastinum: Mediastinal contours appear normal. Heart size is normal. Bones and chest wall: No suspicious bony lesions. Overlying soft tissues appear unremarkable. IMPRESSION: No acute process. Reviewed by: Juancarlos Fontana MD on 08/08/2022 12:26 PM [facility] Approved by: Juancarlos Fontana MD on 08/08/2022 12:26 PM [facility] Station ID: [id number]
--- NOTE | 2022-08-08 13:44 | ED Physician Documentation ---
PD HPI URI - Stated complaint Stated Complaint: COUGH W/BURNING CHEST - Chief complaint Chief Complaint: Resp - History obtained from History obtained from: Patient - Additional information Additional information: Patient is a 41-year-old female with no significant past medical history presenting for evaluation of productive cough that is been present for 3 to 4 days. Other family members have been ill with similar symptoms including her children. Her cough has been productive of green phlegm.She denies any known fevers. She has been able to tolerate p.o. She has been using a DayQuil and NyQuil without any significant improvement.Patient is here to request cough medication. She denies difficulty breathing, chest pain, abdominal pain. She denies a smoking history.She has taken a home COVID test which is negative. Review of Systems Constitutional: denies: Fever Nose: denies: Congestion Cardiac: denies: Chest pain / pressure Respiratory: reports: Cough. 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 : Chronic bladder infection HEENT: None Psych: None Musculoskeletal: Chronic back pain Derm: None - Past Surgical History Past Surgical History: No /CAFETERIA OPERATOR: Oophrectomy - Present Medications Home Medications: Ambulatory Orders Medication Instructions Recorded Confirmed Cyclobenzaprine [Flexeril] 10 mg PO TID PRN #20 tablet 08/27/21 Dextroamphetamine/Amphetamine 10 mg PO 08/27/21 [Adderall 10 mg Tablet] guaiFENesin/DEXTROMETHORPHAN 10 ml PO Q6H PRN #120 ml 08/08/22 [Robitussin Dm] - Allergies Allergies/Adverse Reactions: Allergies Allergy/AdvReac Type Severity Reaction Status Date / Time azithromycin AdvReac Nausea Verified 02/21/22 09:56 - Social History Does the pt smoke?: No Smoking Status: Never smoker Does the pt drink ETOH?: No Does the pt have substance abuse?: No - Immunizations Immunizations are current?: Yes - POLST Patient has POLST: No PD ED PE NORMAL - General General: Alert and oriented X 3, No acute distress, Well developed/nourished - HEENT HEENT: Atraumatic, Moist mucous membranes - Neck Neck: Supple, no meningeal sign - Cardiac Cardiac: RRR, No murmur - Respiratory Respiratory: No respiratory distress, Clear bilaterally - Abdomen Abdomen: Soft, Non tender, Non distended - Derm Derm: Warm and dry - Neuro Neuro: Normal speech Results - Vitals Vitals: Vital Signs - 24 hr 08/08/22 12:36 Temperature 37.1 C Heart Rate 84 Respiratory 19 Rate Blood Pressure 128/92 H O2 Saturation 100 Oxygen O2 Source Room air PD MEDICAL DECISION MAKING - ED course Complexity details: reviewed results ED course: Patient presenting for evaluation of productive cough for 3 to 4 days. Home COVID test was negative. Her chest x-ray is clear. Her vital signs are stable. Her lung sounds are clear. She is nonlabored with her breathing and appears quite comfortable.Discussed that her symptoms are likely related to a viral etiology especially given other family members are also ill. Patient was requesting something for her cough.Patient counseled on concerning symptoms to return for and is ambulatory at discharge. Departure - Departure Disposition: 01 Home, Self Care Clinical Impression: Viral URI with cough Condition: Stable Instructions: ED Viral Syndrome Prescriptions: guaiFENesin/DEXTROMETHORPHAN [Robitussin Dm] 10 ml PO Q6H PRN #120 ml PRN Reason: Cough Comments: Your chest x-ray is clear. Your vital signs appear stable. You likely have a viral illness especially given that other family members have similar symptoms. I have sent a cough medication To [facility] in [place]. Please continue to stay hydrated. Use acetaminophen or ibuprofen as needed for fevers and body aches. If you have any worsening symptoms such as labored breathing then please consider return to the ER. Discharge Date/Time: 08/08/22 13:58
== END 2022-08-08 13:58 | disposition home or self-care (01) ==
LOC: ED 12:08
DX: J06.9 Acute upper respiratory infection, unspecified (principal)
CPT/HCPCS: 99283; 99284

== ENCOUNTER 2023-02-14 12:30 | Outpatient (CLI) | payer BC, OTHER ==
[2023-02-14 20:05] LABS: BACTERIAL VAGINOSIS DNA NEGATIVE (NEGATIVE); CANDIDA GLABRATA DNA NEGATIVE (NEGATIVE); CANDIDA GROUP DNA NEGATIVE (NEGATIVE); CANDIDA KRUSEI DNA NEGATIVE (NEGATIVE); TRICHOMONAS VAGINALIS DNA NEGATIVE (NEGATIVE)
== END 2023-02-14 12:45 | disposition home or self-care (01) ==
LOC: LAB.N 12:30
PROVIDERS: ATTEND Registered Nurse
DX: L29.8 Other pruritus (principal)
CPT/HCPCS: 81514

== ENCOUNTER 2023-02-19 21:32 | Emergency (ER) | payer OTHER ==
[2023-02-19 21:50] VITALS: BP 108/75
[2023-02-19 22:24] LABS: BILIRUBIN,URINE NEGATIVE (NEGATIVE); GLUCOSE, URINE (UA) NEGATIVE (NEGATIVE); KETONES,URINE (UA) NEGATIVE (NEGATIVE); LEUKOCYTE ESTERASE, URINE NEGATIVE (NEGATIVE); NITRITE,URINE NEGATIVE (NEGATIVE); OCCULT BLOOD,URINE LARGE (NEGATIVE); PH,URINE 6.5 PH (5.0-7.5); PROTEIN,URINE NEGATIVE (NEGATIVE); UROBILINOGEN,URINE 0.2 (NORMAL) E.U./dL (NORMAL)
[2023-02-19 22:29] LABS: CLARITY,URINE HAZY (CLEAR); HCG UR QUAL NEGATIVE
[2023-02-19 22:36] LABS: BACTERIA,URINE None Seen /HPF (None Seen); SQUAMOUS EPITHELIAL CELL,UR NONE SEEN (<= Few); WBC,URINE 0-3 /HPF (0-5)
--- NOTE | 2023-02-19 22:53 | ED Physician Documentation ---
PD HPI FEMALE - Stated complaint Stated Complaint: FEMALE - Chief complaint Chief Complaint: General - History obtained from History obtained from: Patient - Additional information Additional information: Patient is a 42-year-old female presenting for evaluation of vaginal bleeding that started 45 minutes prior to arrival after just having intercourse with her partner. Patient states that it was dark blood. Denies Abdominal or pelvic pain. States that she had her ovaries removed 2 years ago and that she also had an endometrial ablation over a year ago.She reports having a slight headache. She denies that the headache is the worst headache she has ever had.She reports it feels like a slight pressure at the front of her head. She denies photophobia, nausea, vomiting, abdominal pain.She recently was treated for a UTI. She denies dysuria, frequency or urgency.Denies back pain. 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 : Chronic bladder infection HEENT: None Psych: None Musculoskeletal: Chronic back pain Derm: None - Past Surgical History Past Surgical History: No /STAFFING CONSULTANT: Oophrectomy - Present Medications Home Medications: Ambulatory Orders Medication Instructions Recorded Confirmed Cyclobenzaprine [Flexeril] 10 mg PO TID PRN #20 tablet 08/27/21 Dextroamphetamine/Amphetamine 10 mg PO 08/27/21 [Adderall 10 mg Tablet] guaiFENesin/DEXTROMETHORPHAN 10 ml PO Q6H PRN #120 ml 08/08/22 [Robitussin Dm] metroNIDAZOLE [Flagyl] 500 mg PO BID 7 Days #14 tablet 02/20/23 - Allergies Allergies/Adverse Reactions: Allergies Allergy/AdvReac Type Severity Reaction Status Date / Time azithromycin AdvReac Nausea Verified 02/19/23 21:46 - Social History Does the pt smoke?: No Smoking Status: Never smoker Does the pt drink ETOH?: No Does the pt have substance abuse?: No - Immunizations Immunizations are current?: Yes - POLST Patient has POLST: No PD ED PE NORMAL - General General: Alert and oriented X 3, No acute distress, Well developed/nourished - HEENT HEENT: Atraumatic - Neck Neck: Supple, no meningeal sign - Cardiac Cardiac: RRR, No murmur - Respiratory Respiratory: No respiratory distress, Clear bilaterally - Abdomen Abdomen: Soft, Non tender, Non distended - Female Female : Educational Specialist present (Nina munoz) - Back Back: No CVA TTP - Derm Derm: Warm and dry - Neuro Neuro: Normal speech PD ED PE EXPANDED - Female Female : Normal external, Vaginal Bleeding, Vaginal Discharge (clear/white), Cultures sent, Educational Specialist present, Other (Abrasion like appearance to 12 o'clock position of cervix). No: CMT, Dilated cervix, Adnexal Tenderness Results - Vitals Vitals: Vital Signs - 24 hr 02/19/23 21:41 Temperature 37.2 C Heart Rate 84 Respiratory 18 Rate Blood Pressure 108/75 O2 Saturation 100 Oxygen O2 Source Room air - Labs Labs: Laboratory Tests 02/19/23 02/19/23 02/19/23 22:12 22:46 22:46 Urine Color YELLOW Urine Clarity HAZY Urine pH 6.5 Ur Specific Keyser 1.015 Urine Protein NEGATIVE Urine Glucose (UA) NEGATIVE Urine Ketones NEGATIVE Urine Occult Blood LARGE H Urine Nitrite NEGATIVE Urine Bilirubin NEGATIVE Urine Urobilinogen 0.2 (NORMAL) Ur Leukocyte Esterase NEGATIVE Urine RBC 11-25 H Urine WBC 0-3 Ur Squamous Epith Cells NONE SEEN Urine Bacteria None Seen Ur Microscopic Review INDICATED Urine Culture Comments NOT INDICATED Urine HCG, Qual NEGATIVE C. glabrata (PCR) NEGATIVE C. krusei (PCR) NEGATIVE Malena species DNA NEGATIVE Chlam trachomat DNA PCR NEGATIVE N.gonorrhoeae DNA (PCR) NEGATIVE T. vaginalis (PCR) NEGATIVE NEGATIVE Bact Vaginosis (PCR) POSITIVE A PD Medical Decision Making - ED course Complexity details: reviewed results, re-evaluated patient, d/w patient ED course: Patient presenting for evaluation of vaginal bleeding after intercourse. Reports she has not had a period in a long time after having an endometrial ablation thus causing her concern tonight. Denies any pain. No pain or discomfort noted on exam including a pelvic exam. Does have a abraded appearance to the 12 o'clock position of her cervix which I reviewed with the patient. Cultures were sent and positive for bacterial vaginosis. We will have a.m. nurse relay culture results to patient. [facility].She has no abdominal tenderness.Bleeding was very minimal.Patient reported that he slight headache. We did discuss possibly doing a CT of her brain given the headache after intercourse. However patient states that this is not the worst headache and feels very minimal at this time. She has no nuchal rigidity And has a normal neuro exam. Clinically she is very well-appearing. She declined CT scan at this time.Patient is feeling well here. We do not have ultrasound available at the time of her ED presentation. Thus I recommended close follow-up with her manager video games at [facility] regarding her vaginal bleeding. However she also understands that she can return to the emergency department at any time. Departure - Departure Disposition: 01 Home, Self Care Clinical Impression: Vaginal bleeding, Bacterial vaginosis Condition: Stable Instructions: ED Bleed Irregular Vaginal Comments: The exact cause for your vaginal bleeding Is unclear at this time. There is an area of your cervix are around 12:00 that appears to have an abrasion. However I would recommend that you have an ultrasound to look at your uterus. [facility] Your options are to return to the emergency department during daytime hours to have an ultrasound or to follow-up with your manager video games at [facility]. I would recommend close follow-up with your manager video games regardless. Please make sure that you are up-to-date on your Pap smears. We did not perform a Pap smear in the emergency department as this is not a test that is done in the emergency department. A Pap smear is a routine test to screen for cervical cancer and is important for women. Your urine does not show signs of infection. We did also obtain swabs and if there is any abnormal findings we will notify you. Return to the emergency department with any worsening symptoms such as pain. Discharge Date/Time: 02/19/23 23:10
[2023-02-20 02:11] LABS: BACTERIAL VAGINOSIS DNA POSITIVE (NEGATIVE); CANDIDA GLABRATA DNA NEGATIVE (NEGATIVE); CANDIDA GROUP DNA NEGATIVE (NEGATIVE); CANDIDA KRUSEI DNA NEGATIVE (NEGATIVE); TRICHOMONAS VAGINALIS DNA NEGATIVE (NEGATIVE)
[2023-02-20 02:12] LABS: CHLAMYDIA TRACHOMATIS DNA NEGATIVE (NEGATIVE); NEISSERIA GONORRHOEAE DNA NEGATIVE (NEGATIVE); TRICHOMONAS VAGINALIS DNA NEGATIVE (NEGATIVE)
== END 2023-02-19 23:10 | disposition home or self-care (01) ==
LOC: ED 21:32
DX: N93.9 Abnormal uterine and vaginal bleeding, unspecified (principal); N76.0 Acute vaginitis; S30.814A Abrasion of vagina and vulva, initial encounter; X58.XXXA Exposure to other specified factors, initial encounter; Y93.89 Activity, other specified
CPT/HCPCS: 81001; 81003; 81025; 81514; 87086; 87491; 87591; 87661; 99283; 99284